=== PATIENT | female | born 2000 | race African-American/Black ===

== ENCOUNTER 2018-11-01 16:13 | Emergency (ER) | payer OTHER | END 2018-11-01 17:43 | disposition home or self-care (01) | LOC: SCSER 16:13 | DX: J30.9 Allergic rhinitis, unspecified (principal); J32.9 Chronic sinusitis, unspecified; D64.9 Anemia, unspecified; G43.909 Migraine, unspecified, not intractable, without status migrainosus | CPT/HCPCS: 99283 ==